=== PATIENT | male | born 1995 | race Caucasian/White ===

== ENCOUNTER 2021-06-26 09:36 | Emergency (ER) | payer SELFPAY ==
[2021-06-26] MEDS ORDERED: Lidocaine 1% (PF) 30 ML VIAL ONE ×2 (13:39→14:10)
[2021-06-26] MEDS ORDERED: Ketorolac Tromethamine 30 MG/ML VIAL ONE (14:11)
[2021-06-26] MEDS ORDERED: Ondansetron ODT 4 MG TAB ONE (14:16)
[2021-06-26] MEDS ORDERED: Sulfameth/Trimethoprim DS 800-160mg TAB ONE (14:52)
[2021-06-26] MEDS ORDERED: Bacitracin 1 PK ONE (14:53)
== END 2021-06-26 15:03 | disposition home or self-care (01) ==
LOC: ERS 09:36
DX: S61.411A Laceration without foreign body of right hand, initial encounter (principal); W25.XXXA Contact with sharp glass, initial encounter; F17.210 Nicotine dependence, cigarettes, uncomplicated
CPT/HCPCS: 12004; J1885; J2001; Q0162

== ENCOUNTER 2023-04-28 14:37 | Emergency (ER) | payer SELFPAY ==
[2023-04-28] MEDS ORDERED: Bacitracin 1 PK ONE (15:45)
== END 2023-04-28 15:55 | disposition home or self-care (01) ==
LOC: ERS 14:37
DX: S61.412A Laceration without foreign body of left hand, initial encounter (principal); F17.210 Nicotine dependence, cigarettes, uncomplicated; W26.0XXA Contact with knife, initial encounter
CPT/HCPCS: 12001

== ENCOUNTER 2023-04-28 18:06 | Emergency (ER) | payer SELFPAY ==
[2023-04-28] MEDS ORDERED: Bacitracin 1 PK ONE (18:24)
== END 2023-04-28 18:46 | disposition home or self-care (01) ==
LOC: ERS 18:06
DX: S60.222A Contusion of left hand, initial encounter (principal); F17.210 Nicotine dependence, cigarettes, uncomplicated; W26.0XXA Contact with knife, initial encounter
CPT/HCPCS: 99282